=== PATIENT | female | born 1960 | race Caucasian/White ===

== ENCOUNTER 2023-03-09 15:05 | Outpatient (CLI) | payer MEDICARE ==
--- NOTE | 2023-03-09 16:04 | XRAY Report ---
PROCEDURE: Chest 2 View X-Ray INDICATIONS: UNSPECIFIED COUGH TECHNIQUE: 2 views of the chest were acquired. COMPARISON: None. FINDINGS: Surgical changes and devices: None. Lungs and pleura: No pleural effusions or pneumothorax. Lungs are clear. Mediastinum: Mediastinal contours appear normal. Heart size is normal. Bones and chest wall: No suspicious bony lesions. Overlying soft tissues appear unremarkable. IMPRESSION: No acute cardiopulmonary process. Reviewed by: Wil Pope MD on 03/09/2023 4:03 PM [facility] Approved by: Wil Pope MD on 03/09/2023 4:03 PM [facility] Station ID: [id number]
== END 2023-03-09 23:59 | disposition home or self-care (01) ==
LOC: DI.N 15:05
PROVIDERS: ATTEND Nurse Practitioner
DX: R05.9 Cough, unspecified (principal)

== ENCOUNTER 2023-03-09 15:11 | Outpatient (CLI) | payer MEDICARE | END 2023-03-09 15:12 | disposition home or self-care (01) | LOC: DI.N 15:11 | PROVIDERS: ATTEND Nurse Practitioner | DX: Z53.9 Procedure and treatment not carried out, unspecified reason (principal) ==

== ENCOUNTER 2023-10-17 01:15 | Emergency (ER) | payer MEDICARE ==
--- NOTE | 2023-10-17 01:37 | ED Physician Documentation ---
PD HPI ABD PAIN - Stated complaint Stated Complaint: L SIDE ABD PX - Chief complaint Chief Complaint: Abd Pain - History obtained from History obtained from: Patient - Additional information Additional information: HPI from patient. Patient complains of severe left lower quadrant pain, onset approximately 9 PM tonight while at home at rest. Pain was associate with nausea and vomiting, waxing and waning but constant for a few hours until finally and significantly improving, spontaneously, as she was registering to be a patient in this emergency department. She denies history of similar symptoms. She describes pain as feeling like a "spasm". The pain radiated from the left lower quadrant around the left flank to the left paralumbar region. There were no exacerbating or ameliorating factors. Denies hematuria, dysuria. Denies injury. Review of Systems Constitutional: denies: Fever Cardiac: reports: Reviewed and negative Respiratory: reports: Reviewed and negative GI: reports: Abdominal Pain, Nausea, Vomiting. denies: Abdominal Swelling, Constipation, Diarrhea : denies: Dysuria, Frequency, Hematuria PD PAST MEDICAL HISTORY - Past Medical History Past Medical History: Yes Cardiovascular: Murmur Respiratory: None Neuro: None Endocrine/Autoimmune: None GI: None MACHINE OPERATOR: None : None Psych: None Musculoskeletal: Osteoarthritis Derm: None - Past Surgical History Past Surgical History: Yes General: Cholecystectomy - Present Medications Home Medications: Ambulatory Orders Medication Instructions Recorded Confirmed Meloxicam 10/17/23 - Allergies Allergies/Adverse Reactions: Allergies Allergy/AdvReac Type Severity Reaction Status Date / Time codeine Allergy Intermediate Nausea Verified 10/17/23 01:21 - Social History Does the pt smoke?: Yes Smoking Status: Current every day smoker Does the pt drink ETOH?: No Does the pt have substance abuse?: No - Immunizations Immunizations are current?: Yes - POLST Patient has POLST: No PD ED PE NORMAL - Vitals Vital signs reviewed: Yes - General General: Alert and oriented X 3, No acute distress, Well developed/nourished - Cardiac Cardiac: RRR, No murmur - Respiratory Respiratory: No respiratory distress, Clear bilaterally - Abdomen Abdomen: Normal bowel sounds, Soft, Non tender, Non distended - Back Back: No CVA TTP - Derm Derm: No rash Results - Vitals Vitals: Vital Signs - 24 hr 10/17/23 10/17/23 01:23 02:39 Temperature 36.5 C 36.2 C L Heart Rate 89 84 Respiratory 16 16 Rate Blood Pressure 189/97 H 154/68 H O2 Saturation 100 99 Oxygen O2 Source Room air - Labs Labs: Laboratory Tests 10/17/23 01:40 Urine Color YELLOW Urine Clarity CLEAR Urine pH 6.0 Ur Specific [place] >=1.030 H Urine Protein TRACE Urine Glucose (UA) 100 H Urine Ketones NEGATIVE Urine Occult Blood MODERATE H Urine Nitrite NEGATIVE Urine Bilirubin NEGATIVE Urine Urobilinogen 0.2 (NORMAL) Ur Leukocyte Esterase NEGATIVE Urine RBC 11-25 H Urine WBC 0-3 Ur Squamous Epith Cells MOD Squamous H Urine Crystals 3-5 Uric Acid Urine Bacteria None Seen Ur Microscopic Review INDICATED Urine Culture Comments NOT INDICATED PD Medical Decision Making - ED course Complexity details: reviewed results, re-evaluated patient, considered differential, d/w patient ED course: By the time of this H&P, the patient says the pain has essentially resolved. The abdominal exam is entirely benign. The description and location of pain are suggestive of renal colic, and this suspicion is yet more likely given that the urinalysis is positive for hematuria without any findings to suggest UTI. I discussed these results with the patient. My recommendation was to undertake CT A/P without IV contrast, but patient wishes to hold off on this until and unless the pain reoccurs. This is a reasonable approach, as CT would possibly offer confirmation but not change immediate treatment. Return precautions were reviewed. Departure - Departure Disposition: 01 Home, Self Care Clinical Impression: Flank pain Condition: Good Instructions: ED Flank Pain Uncertain Cause Comments: Your urinalysis result is most notable for blood in the urine. This finding, combined with your description of the pain and the location (left flank) make renal colic (kidney stone pain) a highly likely explanation for ellyn's symptoms. As we discussed, a CT scan of your abdomen and pelvis would be indicated as the next test for diagnosing kidney stones. As your pain has resolved, you have elected to decline this test at this time. This is a reasonable approach, as the CT scan might result in the diagnosis (kidney stone), but rarely changes the immediate treatment. The advantage of CT scan is confirmation of diagnosis and some degree of prognosis: the larger kidney stones and higher (in the ureter) stones are more likely to need surgical removal. Smaller, lower kidney stones often pass without needing surgical intervention. Follow-up with your primary care provider, next available appointment, for r eevaluation. At your primary care provider's discretion, an outpatient CT scan can be undertaken if necessary/appropriate. Certainly, you can always return to the emergency department at any time your symptoms recur, or if you develop new/concerning signs/symptoms (such as fever, inability to urinate, abdominal pain, intractable vomiting). Discharge Date/Time: 10/17/23 02:40
[2023-10-17 01:59] LABS: BILIRUBIN,URINE NEGATIVE (NEGATIVE); GLUCOSE, URINE (UA) 100 mg/dL (NEGATIVE); KETONES,URINE (UA) NEGATIVE (NEGATIVE); LEUKOCYTE ESTERASE, URINE NEGATIVE (NEGATIVE); NITRITE,URINE NEGATIVE (NEGATIVE); OCCULT BLOOD,URINE MODERATE (NEGATIVE); PROTEIN,URINE TRACE mg/dL (NEGATIVE); UROBILINOGEN,URINE 0.2 (NORMAL) E.U./dL (NORMAL)
[2023-10-17 02:05] LABS: CLARITY,URINE CLEAR (CLEAR)
[2023-10-17 02:17] LABS: BACTERIA,URINE None Seen /HPF (None Seen); CRYSTALS,URINE 3-5 Uric Acid /LPF; SQUAMOUS EPITHELIAL CELL,UR MOD Squamous (<= Few); WBC,URINE 0-3 /HPF (0-5)
[2023-10-17 02:49] VITALS: BP 154/68; O2SAT 99
== END 2023-10-17 02:40 | disposition home or self-care (01) ==
LOC: ED 01:15
DX: R10.32 Left lower quadrant pain (principal); F17.200 Nicotine dependence, unspecified, uncomplicated
CPT/HCPCS: 81001; 81003; 87086; 99282; 99283